=== PATIENT | female | born 1990 | race Caucasian/White ===

== ENCOUNTER 2018-02-17 09:40 | Emergency (ER) | payer MEDICAID ==
[~2018-02-17] VITALS: Ht 177.8 cm; Wt 94.5 kg
[2018-02-17 09:41] VITALS: Ht 177.8 cm; Wt 94.5 kg
[2018-02-17] MEDS ORDERED: PENICILLIN V P500 MG PO (10:40)
[2018-02-17] MEDS ORDERED: ULTRAM50 MG PO (10:41)
[2018-02-17 11:12] VITALS: BP 113/78
== END 2018-02-17 11:09 | disposition home or self-care (01) ==
LOC: D.ER 09:40
DX: K08.89 Other specified disorders of teeth and supporting structures (principal); K04.7 Periapical abscess without sinus; F17.200 Nicotine dependence, unspecified, uncomplicated

== ENCOUNTER 2018-02-23 07:24 | Emergency (ER) | payer MEDICAID ==
[~2018-02-23] VITALS: Ht 177.8 cm; Wt 92.7 kg
[~2018-02-23 07:24] MED LIST: PENICILLIN V P500 MG PO; ULTRAM50 MG PO
[2018-02-23 07:30] VITALS: Ht 177.8 cm; Wt 92.7 kg
[2018-02-23 08:29] LABS: APPEARANCE SL CLDY (CLEAR); BACTERIA FEW /hpf (NONE SEEN); BILIRUBIN NEGATIVE (NEGATIVE); COLOR YELLOW (YELLOW); GLUCOSE NEGATIVE (NEGATIVE); KETONE NEGATIVE (NEGATIVE); MUCUS <1+ /lpf (NONE SEEN); NITRITE NEGATIVE (NEGATIVE); PROTEIN NEGATIVE (NEGATIVE); SPECIFIC GRAVITY 1.015 (1.005-1.020); UROBILINOGEN NORMAL (NORMAL); WHITE CELLS - URINE 0-5 /hpf (0-5)
[2018-02-23] MEDS ORDERED: BENADRYL50 MG PO (08:44)
[2018-02-23] MEDS ORDERED: ULTRAM50 MG PO (08:44)
[2018-02-23 09:05] VITALS: BP 110/64
== END 2018-02-23 09:06 | disposition home or self-care (01) ==
LOC: D.ER 07:24
PROVIDERS: Family Medicine
DX: K02.9 Dental caries, unspecified (principal); R30.0 Dysuria; L29.9 Pruritus, unspecified; F17.200 Nicotine dependence, unspecified, uncomplicated

== ENCOUNTER 2018-05-14 21:04 | Emergency (ER) | payer MEDICAID ==
[~2018-05-14] VITALS: Ht 177.8 cm; Wt 77.3 kg
[~2018-05-14 21:04] MED LIST changes: +BENADRYL50 MG PO
[2018-05-14 21:08] VITALS: Ht 177.8 cm; Wt 77.3 kg
[2018-05-14 21:36] LABS: APPEARANCE CLEAR (CLEAR); BILIRUBIN NEGATIVE (NEGATIVE); COLOR YELLOW (YELLOW); GLUCOSE NEGATIVE (NEGATIVE); KETONE NEGATIVE (NEGATIVE); NITRITE NEGATIVE (NEGATIVE); PROTEIN NEGATIVE (NEGATIVE); UROBILINOGEN NORMAL (NORMAL)
[2018-05-14 21:38] LABS: BASOPHILS 0.1 % (0-2); EOSINOPHILS 3.7 % (0-7); HEMATOCRIT 34.2 % (36.0-48.0); HEMOGLOBIN 11.4 g/dL (12-16); IMMATURE GRANULOCYTES 0.1 % (0-5); LYMPHOCYTES 33.5 % (15-50); MCH 29.9 pg (26.0-34.0); MCHC 33.3 g/dL (31.0-37.0); MCV 89.8 fL (80.0-100.0); MONOCYTES 3.4 % (2-11); NEUTROPHILS 59.2 % (40-80); PLATELET COUNT 203 10x3/uL (130-400); RBC 3.81 10x6/uL (4.00-5.40); RDW 13.3 % (11.5-14.5); WBC 6.8 10x3/uL (4.8-10.8)
[2018-05-14 21:40] LABS: BACTERIA MODERATE /hpf (NONE SEEN); EPITHELIAL CELLS 0-5 /hpf (0-5); RED CELLS - URINE 0-5 /hpf (0-5); WHITE CELLS - URINE 0-5 /hpf (0-5)
[2018-05-14 21:41] LABS: MUCUS >1+ /lpf (NONE SEEN)
[2018-05-14 21:47] LABS: HCG SERUM NEGATIVE (NEGATIVE)
[2018-05-14 21:55] LABS: ALBUMIN 3.6 g/dL (3.4-5.0); ALKALINE PHOSPHATASE 51 U/L (46-116); ALT (SGPT) 16 U/L (10-68); AMYLASE - SERUM 45 U/L (25-115); BILIRUBIN - TOTAL 0.13 mg/dL (0.2-1.3); CALC OSMOLALITY 281 mosm/kg (275-300); CALCIUM 8.2 mg/dL (8.5-10.1); CARBON DIOXIDE 25.3 mmol/L (21.0-32.0); CHLORIDE - SERUM 106 mmol/L (98-107); CREATININE - SERUM 0.7 mg/dL (0.6-1.3); GLUCOSE 90 mg/dL (74-106); LIPASE 111 U/L (73-393); POTASSIUM - SERUM 3.7 mmol/L (3.5-5.1); PROTEIN - SERUM 6.9 g/dL (6.4-8.2); SODIUM 142 mmol/L (136-145); UREA NITROGEN 11 mg/dL (7-18); eGFR NON AFRICAN AMERICAN > 90 mL/min (90-120)
[2018-05-14] MEDS ORDERED: PHENERGAN25 MG RC (23:27)
[2018-05-14 23:46] VITALS: BP 115/64
== END 2018-05-14 23:45 | disposition home or self-care (01) ==
LOC: D.ER 21:04
PROVIDERS: Family Medicine
DX: K52.9 Noninfective gastroenteritis and colitis, unspecified (principal); R10.13 Epigastric pain

== ENCOUNTER 2018-06-08 10:30 | Emergency (ER) | payer MEDICAID ==
[~2018-06-08] VITALS: Ht 177.8 cm; Wt 90.9 kg
[~2018-06-08 10:30] MED LIST changes: +PHENERGAN25 MG RC
[2018-06-08 10:34] VITALS: Ht 177.8 cm; Wt 90.9 kg
[2018-06-08] MEDS ORDERED: ULTRAM50 MG PO (12:32)
[2018-06-08 13:03] VITALS: BP 114/76
== END 2018-06-08 13:03 | disposition home or self-care (01) ==
LOC: D.ER 10:30
DX: R07.89 Other chest pain (principal)